=== PATIENT | female | born 1945 | race Caucasian/White ===

== ENCOUNTER 2017-10-23 22:01 | Emergency (ER) | payer MEDICARE, BC ==
[~2017-10-23] VITALS: Ht 157.5 cm; Wt 67.3 kg
[~2017-10-23 22:01] MED LIST: HCTZ 25MG25 MG PO; MAVIK PO; PULMICORT0.5 MG/21 IH
[2017-10-23 22:08] VITALS: TEMP 97.5
[2017-10-24] MEDS ORDERED: MOBIC 7.5MG7.5 MG PO (00:06)
[2017-10-24 00:18] VITALS: BP 149/64; PULSE 77
== END 2017-10-24 00:20 | disposition home or self-care (01) ==
LOC: COL.ER 22:01
DX: S50.01XA Contusion of right elbow, initial encounter (principal); M25.511 Pain in right shoulder; I10 Essential (primary) hypertension; W01.0XXA Fall on same level from slipping, tripping and stumbling without subsequent striking against object, initial encounter
CPT/HCPCS: J1885